=== PATIENT | female | born 1985 | race Caucasian/White ===

== ENCOUNTER 2017-07-02 20:33 | Emergency (ER) | payer MEDICAID, MEDICARE ==
--- NOTE | 2017-07-02 21:30 | EDM.PDOC ---
ED HPI GENERAL MEDICAL PROBLEM - General Chief Complaint: Abdominal Pain Stated Complaint: ABD PAIN Time Seen by Provider: 07/02/17 21:20 Source of Information: Reports: Patient History Limitations: Reports: No Limitations - History of Present Illness INITIAL COMMENTS - FREE TEXT/NARRATIVE: 32-year-old female who has been experiencing upper abdominal pain, mostly the right upper quadrant intermittently for the past week. Worse with eating, radiates to the back and the right shoulder. Some nausea and vomiting. She does not believe she's had a fever but she's had intermittent chills. No bowel changes. No history of abdominal surgeries. She has a mild cough but no shortness of breath. She recently started on Chantix but stopped it when she thought the symptoms were related, she has been off the Chantix for over a week and is not improving. No pain with breathing. No urinary symptoms. Onset: Gradual (Over the course of the last 7-10 days) Location: Reports: Abdomen Severity: Moderate Improves with: Reports: None Worsens with: Reports: Eating Associated Symptoms: Reports: Cough, Malaise, Nausea/Vomiting, Other (Having difficulty sleeping, pain is keeping her up at night.). Denies: Chest Pain, Shortness of Breath upper abdominal/ epigastric pain Pain Score (Numeric/FACES): 6 - Related Data Allergies Allergy/AdvReac Type Severity Reaction Status Date / Time No Known Allergies Allergy Verified 07/02/17 20:54 Past Medical History HEENT History: Reports: Impaired Vision Gastrointestinal History: Reports: Chronic Constipation, GERD, Hemorrhoids Psychiatric History: Reports: ADHD - Infectious Disease History Infectious Disease History: Reports: Chicken Pox - Past Surgical History HEENT Surgical History: Reports: Oral Surgery Social & Family History - Tobacco Use Smoking Status *Q: Former Smoker Used Tobacco, but Quit: Yes Month Tobacco Last Used: May - Caffeine Use Caffeine Use: Reports: Coffee, Energy Drinks, Soda, Tea - Recreational Drug Use Recreational Drug Use: Yes ED ROS GENERAL - Review of Systems Review Of Systems: See Below Constitutional: Reports: Chills, Malaise. Denies: Fever HEENT: Reports: No Symptoms Respiratory: Reports: Cough. Denies: Shortness of Breath Cardiovascular: Denies: Chest Pain GI/Abdominal: Reports: Abdominal Pain, Nausea, Vomiting. Denies: Constipation, Diarrhea : Reports: No Symptoms Musculoskeletal: Reports: No Symptoms Skin: Reports: No Symptoms Neurological: Reports: No Symptoms Psychiatric: Reports: No Symptoms ED EXAM, GI/ABD - Physical Exam Exam: See Below Exam Limited By: No Limitations General Appearance: Alert, No Apparent Distress Eyes: Bilateral: Normal Appearance (No jaundice) Head: Atraumatic Respiratory/Chest: No Respiratory Distress, Lungs Clear Cardiovascular: Regular Rate, Rhythm GI/Abdominal Exam: Soft, Tender (Some tenderness in the right upper quadrant but no guarding, no obvious Curiel's sign) Extremities: No: Pedal Edema Neurological: Alert, Oriented Psychiatric: Normal Affect, Normal Mood Skin Exam: Warm, Dry Course - Vital Signs Last Recorded V/S: Last Vital Signs Temp 97.0 F 07/02/17 21:08 Pulse 94 07/02/17 21:08 Resp 17 07/02/17 21:08 BP 152/96 H 07/02/17 21:08 Pulse Ox 96 07/02/17 21:08 - Orders/Labs/Meds Orders: Active Orders 24 hr Category Date Time Status Chest 2V [CR] Routine Exams 07/02/17 22:12 Taken Labs: Laboratory Tests 07/02/17 07/02/17 07/02/17 Range/Units 21:25 21:25 21:33 WBC 14.4 H (4.5-11.0) K/uL RBC 4.50 (3.30-5.50) M/uL Hgb 14.6 (12.0-15.0) g/dL Hct 41.0 (36.0-48.0) % MCV 91 (80-98) fL MCH 32 H (27-31) pg MCHC 36 (32-36) % Plt Count 293 (150-400) K/uL Neut % (Auto) 73 H (36-66) % Lymph % (Auto) 19 L (24-44) % [place] % (Auto) 7 H (2-6) % Eos % (Auto) 1 L (2-4) % Baso % (Auto) 0 (0-1) % Sodium 141 (140-148) mmol/L Potassium 4.3 (3.6-5.2) mmol/L Chloride 103 (100-108) mmol/L Carbon Dioxide 30 (21-32) mmol/L Anion Gap 8.2 (5.0-14.0) mmol/L BUN 11 (7-18) mg/dL Creatinine 0.7 (0.6-1.0) mg/dL Est Cr Clr Drug Dosing 94.56 mL/min Estimated GFR (MDRD) > 60 (>60) Glucose 118 H (74-106) mg/dL Calcium 9.2 (8.5-10.1) mg/dL Total Bilirubin 0.3 (0.2-1.0) mg/dL AST 19 (15-37) U/L ALT 37 (12-78) U/L Alkaline Phosphatase 46 (46-116) U/L Total Protein 7.4 (6.4-8.2) g/dL Albumin 4.0 (3.4-5.0) g/dL Globulin 3.4 (2.3-3.5) g/dL Albumin/Globulin Ratio 1.2 (1.2-2.2) Amylase 34 (25-115) U/L Lipase 172 (73-393) U/L Urine Color Urine Appearance Urine pH (4.5-8.0) Ur Specific [place] (1.008-1.030) Urine Protein (NEGATIVE) mg/dL Urine Glucose (UA) (NEGATIVE) mg/dL Urine Ketones (NEGATIVE) mg/dL Urine Occult Blood (NEGATIVE) Urine Nitrite (NEGATIVE) Urine Bilirubin (NEGATIVE) Urine Urobilinogen (NORMAL) mg/dL Ur Leukocyte Esterase (NEGATIVE) Urine RBC (0-5) Urine WBC (0-5) Ur Epithelial Cells Amorphous Sediment Urine Bacteria Urine Mucus Urine HCG, Qual Negative 07/02/17 Range/Units 21:33 WBC (4.5-11.0) K/uL RBC (3.30-5.50) M/uL Hgb (12.0-15.0) g/dL Hct (36.0-48.0) % MCV (80-98) fL MCH (27-31) pg MCHC (32-36) % Plt Count (150-400) K/uL Neut % (Auto) (36-66) % Lymph % (Auto) (24-44) % [place] % (Auto) (2-6) % Eos % (Auto) (2-4) % Baso % (Auto) (0-1) % Sodium (140-148) mmol/L Potassium (3.6-5.2) mmol/L Chloride (100-108) mmol/L Carbon Dioxide (21-32) mmol/L Anion Gap (5.0-14.0) mmol/L BUN (7-18) mg/dL Creatinine (0.6-1.0) mg/dL Est Cr Clr Drug Dosing mL/min Estimated GFR (MDRD) (>60) Glucose (74-106) mg/dL Calcium (8.5-10.1) mg/dL Total Bilirubin (0.2-1.0) mg/dL AST (15-37) U/L ALT (12-78) U/L Alkaline Phosphatase (46-116) U/L Total Protein (6.4-8.2) g/dL Albumin (3.4-5.0) g/dL Globulin (2.3-3.5) g/dL Albumin/Globulin Ratio (1.2-2.2) Amylase (25-115) U/L Lipase (73-393) U/L Urine Color Yellow Urine Appearance Cloudy Urine pH 6.5 (4.5-8.0) Ur Specific [place] 1.020 (1.008-1.030) Urine Protein Negative (NEGATIVE) mg/dL Urine Glucose (UA) Normal (NEGATIVE) mg/dL Urine Ketones Negative (NEGATIVE) mg/dL Urine Occult Blood Large (NEGATIVE) Urine Nitrite Negative (NEGATIVE) Urine Bilirubin Negative (NEGATIVE) Urine Urobilinogen Normal (NORMAL) mg/dL Ur Leukocyte Esterase Negative (NEGATIVE) Urine RBC 5-10 H (0-5) Urine WBC 0-5 (0-5) Ur Epithelial Cells Few Amorphous Sediment Numerous Urine Bacteria Few Urine Mucus Moderate Urine HCG, Qual - Re-Assessments/Exams Free Text/Narrative Re-Assessment/Exam: 07/02/17 21:30 CBC, CMP, amylase and lipase were obtained as well as a urine and urine . 07/02/17 22:33 White count was 14,400, all other labs were normal. A two-view chest x-ray was then obtained because of the pain in the right base of the long, that was normal. Patient will return tomorrow morning at 8 AM for a gallbladder ultrasound, nothing by mouth after midnight. Departure - Departure Time of Disposition: 22:48 Disposition: Home, Self-Care 01 Condition: Good Clinical Impression: Abdominal pain Qualifiers: Abdominal location: right upper quadrant Qualified Code(s): R10.11 - Right upper quadrant pain - Discharge Information Instructions: Abdominal Pain, Adult, [id number] Referrals: King Diaz MD [Primary Care Provider] - Forms: ED Department Discharge Care Plan Goals: Nothing to eat after midnight, return tomorrow morning at 7:30 to a 7:45 to register for gallbladder ultrasound. You will discuss the results with Dr. Officer. - My Orders Last 24 Hours: My Active Orders 07/02/17 22:12 Chest 2V [CR] Routine - Assessment/Plan Last 24 Hours: My Active Orders 07/02/17 22:12 Chest 2V [CR] Routine
--- NOTE | 2017-07-05 09:51 | CR ---
Chest 2V FINDINGS: The heart and vascular structures are normal in appearance. No infiltrates or effusions are demonstrated. The skeletal structures are unremarkable. IMPRESSION: Negative exam.
== END 2017-07-02 22:48 | disposition home or self-care (01) ==
LOC: JP.ED 20:33
DX: R10.11 Right upper quadrant pain (principal); Z87.891 Personal history of nicotine dependence
CPT/HCPCS: 36415; 71046; 71046-26; 76705; 80053; 81001; 81025; 82150; 83690; 85025; 99283; 99284

== ENCOUNTER 2017-07-03 15:18 | Inpatient (IN) | payer MEDICARE, MEDICAID ==
[~2017-07-03 15:18] MED LIST: HYDROmorphone 1 MG/ML Syringe IV PRN; Lactated Ringers 1,000 ML IV SCH; Ondansetron 4 MG/2 ML SDV IVPUSH PRN
[2017-07-03] MEDS ORDERED: Bupivacaine 0.5%/EPINEPHrine 1:200,000 50 ML MDV ONE (16:57)
[2017-07-03] MEDS ORDERED: Succinylcholine 200 MG/10 ML MDV ONE (17:18)
[2017-07-03] MEDS ORDERED: Dexamethasone 4 MG/ML SDV ONE (17:18)
[2017-07-03] MEDS ORDERED: Rocuronium 50 MG/5 ML Vial ONE (17:18)
[2017-07-03] MEDS ORDERED: Neostigmine Methylsulfate 1 MG/ML 5 ML Syringe ONE (17:18)
[2017-07-03] MEDS ORDERED: Propofol 200 MG/20 ML SDV ONE (17:18)
[2017-07-03] MEDS ORDERED: Glycopyrrolate 0.2 MG/ML 5 ML MDV ONE (17:18)
[2017-07-03] MEDS ORDERED: Ondansetron 4 MG/2 ML SDV ONE (17:18)
[2017-07-03] MEDS: Ampicillin/Sulbactam Na 3 GM in Sodium Chloride 0.9% 100 ML IV SCH ×2 (17:40→22:05)
[2017-07-03] MEDS: Aztreonam/Dextrose-Water 1 GM in Premix Bag 1 BAG IV SCH (17:40)
[2017-07-03] MEDS ORDERED: hydrOXYzine HCl 100 MG/2 ML SDV IM ONE (17:58)
[2017-07-03] MEDS ORDERED: HYDROmorphone/Normal Saline 15 MG/30 ML PCA IV SCH (18:00)
[2017-07-03] MEDS ORDERED: Labetalol 20 MG/4 ML Syringe ONE (18:13)
[2017-07-03] MEDS: Dextrose 5%-Lactated Ringers 1,000 ML IV SCH (20:00)
[2017-07-03] MEDS ORDERED: Acetaminophen/HYDROcodone 325-5 MG Tab PO PRN (20:05)
[2017-07-03] MEDS ORDERED: Ondansetron 4 MG/2 ML SDV IVPUSH PRN (20:06)
[2017-07-03] MEDS: Pantoprazole 40 MG Vial IV SCH (21:02)
[2017-07-04] MEDS ORDERED: diphenhydrAMINE 50 MG/ML SDV IVPUSH PRN (00:14)
[2017-07-04] MEDS: Aztreonam/Dextrose-Water 1 GM in Premix Bag 1 BAG IV SCH ×3 (01:07→18:15)
[2017-07-04] MEDS: Acetaminophen 325 MG Tab PO PRN ×2 (02:09→06:24)
[2017-07-04] MEDS: Ampicillin/Sulbactam Na 3 GM in Sodium Chloride 0.9% 100 ML IV SCH ×4 (03:43→21:24)
[2017-07-04] MEDS: Dextrose 5%-Lactated Ringers 1,000 ML IV SCH ×2 (05:27→14:52)
[2017-07-04] MEDS: traMADol 50 MG Tab PO PRN ×2 (06:22→11:06)
[2017-07-04] MEDS: HYDROmorphone 1 MG/ML Syringe IV PRN ×2 (12:24→17:23)
--- NOTE | 2017-07-04 13:09 | PN ---
DATE OF SERVICE: 07/04/2017 The patient has been afebrile with stable vital signs overnight. Oral intake has been good. She is still having some issues with pain control. She wished not to be on any real strong narcotics, has been taking Tylenol and we will try tramadol this morning. Since, she has been anxious, I think we will delay timing of the surgery. We will probably better off keeping her 1 more day to make sure things are going okay and we will also switch her to the Tylenol and tramadol mixed to see if that works for pain control. Otherwise, her pain is clear. Labs look good, and we will continue to work with pulmonary toilet and increased activity. Napoleon Enriquez MD /[id number]
[2017-07-04] MEDS: Acetaminophen/HYDROcodone 325-5 MG Tab PO PRN ×2 (14:52→21:23)
[2017-07-04] MEDS: Pantoprazole 40 MG Vial IV SCH (19:46)
[2017-07-05] MEDS: Aztreonam/Dextrose-Water 1 GM in Premix Bag 1 BAG IV SCH ×2 (01:34→08:35)
[2017-07-05] MEDS: Acetaminophen/HYDROcodone 325-5 MG Tab PO PRN ×3 (01:35→09:42)
[2017-07-05] MEDS: Dextrose 5%-Lactated Ringers 1,000 ML IV SCH (02:59)
[2017-07-05] MEDS: Ampicillin/Sulbactam Na 3 GM in Sodium Chloride 0.9% 100 ML IV SCH ×2 (02:59→09:43)
--- NOTE | 2017-07-05 10:52 | OR ---
DATE OF PROCEDURE: 07/03/2017 PREOPERATIVE DIAGNOSIS: Acute cholecystitis. POSTOPERATIVE DIAGNOSES: 1. Acute cholecystitis and cholelithiasis. 2. Enlarged pericholecystic lymph node. 3. Inflammatory pericholecystic fluid collection associated with localized peritonitis. OPERATIVE PROCEDURE: Diagnostic laparoscopy with: 1. Laparoscopic cholecystectomy (92538). 2. Excision of pericholecystic lymph node (35204). 3. Drainage of pericholecystic inflammatory fluid collection associated with localized peritonitis (49421). ANESTHESIA: General. FINANCIAL ADMINISTRATOR: Bev Mora MS-3 INDICATIONS FOR PROCEDURE: The patient was admitted earlier today with a picture of acute cholecystitis. The patient had been ill for at least several days and, on ultrasound, was noted to have strikingly enlarged gallbladder and marked edema with a stone likely lodged in the gallbladder neck. The patient is also quite tender, although it does not appear to be septic per se. Plan is to proceed with a laparoscopic cholecystectomy. Potential risks of the procedure including bleeding, infection, possible need to convert to an open procedure, injury to the common bile duct or other adjacent viscera, problems with stones migrating in the common bile duct requiring additional procedure for correction, as well as remote possibility of cardiopulmonary, septic, or hemorrhagic complications leading to were discussed, and the patient wishes to proceed. DETAILS OF PROCEDURE: The patient was taken to the operating room and placed in a supine position. After general endotracheal anesthesia was induced, the abdomen was prepped and draped and a transverse epigastric incision was made and the peritoneal cavity entered under direct vision with an Optiview trocar inflated to 15 mmHg pressure with CO2. Laparoscope was then reinserted. No underlying trocar insertion site injuries were seen. Following this, a 12 mm subumbilical trocar was placed, along with a single 5 mm right abdominal trocar. The upper abdomen was examined. The patient was noted to have a strikingly distended and thick-walled gallbladder consistent with an acute cholecystitis. The area of the gallbladder neck had a palpable stone impacted within it. As one retracted the gallbladder upward, the patient was noted to have inflammatory fluid collection, which was associated with localized peritonitis. This was evacuated, and at that point, the patient was noted also to have a quite enlarged lymph node along the course of common bile duct adjacent to the cystohepatic triangle. This was felt large enough that a separate excision of this lymph node would be warranted, and this was accomplished with Harmonic Scalpel and the lymph node delivered from the field. The gallbladder was then retracted anteriorly and laterally and dissection began on the gallbladder neck and continued around the gallbladder neck/cystic duct junction. Once this area was well delineated, along with the adjacent cystic artery, both structures were clipped 3 times proximally and once distally, and the gallbladder neck/cystic duct junction divided, as was the cystic artery. The gallbladder was then dissected off the gallbladder bed using Harmonic scalpel, and this was delivered through the upper midline port. This incision needed to be enlarged somewhat to allow the passage of the gallbladder and stone. The patient had a roughly grape-sized stone, which was given to the patient postoperatively. The area of the dissection was inspected. No bleeding or other problems were noted. The John-Oneill drain was taken through the right lateral trocar site and placed into the area of the gallbladder bed and then to the area where the inflammatory fluid collection had been present. Trocars were then sequentially removed and the fascia at the 12 mm sites was closed with 0 Vicryl stitch and the skin was closed with 4-0 Vicryl skin stitch. The epigastric trocar site was packed open with iodoform gauze to minimize chances of wound infection and dressing was applied. The patient was taken to the recovery room in satisfactory condition. Napoleon Enriquez MD /[id number]
--- NOTE | 2017-07-06 03:38 | DISCH ---
ADMISSION DIAGNOSIS: Abdominal pain, acute cholecystitis. DISCHARGE DIAGNOSES: Laparoscopic cholecystectomy, laparoscopic excision of pericholecystic lymph node, drainage of pericholecystic inflammatory fluid collection, and cholecystectomy for acute cholecystitis and cholelithiasis, enlarged pericholecystic lymph node, inflammatory pericholecystic fluid collection. Date of surgery 07/03/2017. HISTORY: Melissa Cordova is a 32-year-old female who presented to the ER with abdominal pain. After preoperative evaluation and discussion of possible risks and possible complications, she wished to proceed with surgical procedure. HOSPITAL COURSE: Melissa had her surgery on 05/03/2018. She had no operative complications. On postop day 1, vital signs were stable. Oral intake was good. She was having some issues with pain control and wished not to be on any narcotic. She was tried on Tylenol and tramadol and that did not hold her pain. There is also an issue with some anxiety. Her pain was not controlled with Tylenol and tramadol. She was switched back to [place] and she tolerated that well. REVIEW OF SYSTEMS: Remainder of review of systems negative for any pertinent positives or negatives, and she is ready to be discharged to home on 07/05/2017. PHYSICAL EXAMINATION: GENERAL: Melissa Cordova is a 32-year-old female. VITAL SIGNS: TPR 97.2, 78, 16, blood pressure 150/88. HEENT: Negative. NECK: Supple. HEART: Regular rate and rhythm. LUNGS: Clear. ABDOMEN: Packing was removed from upper trocar site. Sutures look good. BARB drain was removed. 4x4 was placed over BARB drain site. Abdominal binder has been on. EXTREMITIES: Without peripheral edema. DISPOSITION: Discharged to home. CONDITION: Stable and improving. FOLLOWUP APPOINTMENT: With Mi Shahid PA-C at [facility] on 07/12/2017 at 9:30 a.m. HOME MEDICATIONS: Colace 100 mg p.o. b.i.d. #100, [place] 5/325 mg 1 to 2 every 4 hours p.r.n. pain, #30. DISCHARGE DIET: Usual diet as tolerated. Drink 8 to 10 glasses of water a day. ACTIVITY: As tolerated. No lifting greater than 10 pounds for 2 weeks. She has to walk 6 times daily inside her home. Do not drive on pain medication or for 1 week. Shower/bathing, may shower. Keep operative site clean and dry. Change dressing daily over open trocar site. Wear abdominal binder for 2 weeks and then as tolerated. Notify provider if any fever, increased pain, nausea, or vomiting. Special instruction; use incentive spirometer 10 times every hour while awake for 1 week.
== END 2017-07-05 11:10 | disposition home or self-care (01) | DRG 417 ==
LOC: JP.SDS 15:18 → JP.2SS 19:49 → JP.SDS 07-04 07:58 → JP.2SS 07-04 07:59 → JP.SDS 07-04 08:35 → EEVIPCON 07-04 08:35 → JP.2SS 07-04 08:35 → UNDOADMIN 07-04 08:35 → UNDODISIN 07-05 11:10
PROVIDERS: ADMIT Surgery; ATTEND Surgery
PROC: 0FT44ZZ Resection of Gallbladder, Percutaneous Endoscopic Approach (ICD-10-PCS; principal; 2017-07-03)
PROC: 07BC4ZX Excision of Pelvis Lymphatic, Percutaneous Endoscopic Approach, Diagnostic (ICD-10-PCS; 2017-07-03)
PROC: 0D9W4ZX Drainage of Peritoneum, Percutaneous Endoscopic Approach, Diagnostic (ICD-10-PCS; 2017-07-03)
DX: K80.00 Calculus of gallbladder with acute cholecystitis without obstruction (principal); K65.8 Other peritonitis; R59.0 Localized enlarged lymph nodes; H54.7 Unspecified visual loss; Z87.891 Personal history of nicotine dependence
CPT/HCPCS: 36415; 47562; 49020; 49321; 82247; 84075; 85027; 94762; A9270 ×3; C9113; J0295 ×3; J0330; J1100; J1170; J1200; J2405; J2704; J2710; J3010; J3410; J7030 ×3; J7042 ×2; 88304; 88305; J3490